=== PATIENT | male | born 1960 | race Hispanic/Latino ===

== ENCOUNTER 2019-06-08 18:53 | Emergency (ER) | payer OTHER ==
--- OUTSIDE RECORDS SUMMARY | 2019-06-08 18:56 | XMS REPORT ---
:1960 [facility] Address [address] [place] [address] [address] [place] [address] Care Team Providers Name Role Phone Unavailable Unavailable Unavailable Problems This patient has no known problems. Allergies, Adverse Reactions, Alerts This patient has no known allergies or adverse reactions. Medications This patient has no known medications.
[2019-06-08 20:27] LABS: Absolute Lymphocytes (CBC) 2.1 K/uL (0.7-4.9); Basophils % 0.5 % (0-1.3); Hematocrit 40.6 % (39.6-49.0); Lymphocytes % 23.2 % (15.3-44.8); MPV 8.4 fL (7.6-11.3); RBC Red Blood Cell Count 4.77 M/uL (4.33-5.43)
[2019-06-08 20:40] LABS: Potassium 4.4 mmol/L (3.5-5.1)
[2019-06-08] MEDS ORDERED: HYDROCODONE/APAP 10/325 TAB ONE (22:26)
--- NOTE | 2019-06-09 00:04 | ER ---
Nurse's Notes [facility] Name: Joel Santiago Age: 59 yrs Sex: Male : 1960 Arrival Date: 06/08/2019 Time: 18:54 Bed 23 Private MD: Diagnosis: Torticollis;Headache Presentation: 06/08 18:55 Presenting complaint: Patient states: i have this headache on the L side of my head hj today that goes to my neck area, denies; trauma to the area, denies dizziness, denies N/V: reports sinus infection;. Transition of care: patient was not received from another setting of care. Onset of symptoms was June 08, 2019. Risk Assessment: Do you want to hurt yourself or someone else? Patient reports no desire to harm self or others. Initial Sepsis Screen: Does the patient meet any 2 criteria? No. Patient's initial sepsis screen is negative. Does the patient have a suspected source of infection? No. Patient's initial sepsis screen is negative. Care prior to arrival: None. 18:55 Method Of Arrival: Ambulatory 18:55 Acuity: SERENE 3 hj Triage Assessment: 21:29 Headache History: The patient has had previous headaches and this one is more severe mg2 than previous episodes. General: Appears in no apparent distress. comfortable, Behavior is calm, cooperative. Pain: Pain began gradually, Also complains of no other associated symptoms. Pain: Complains of pain in left base of the skull and left occipital area and left temporal area and left frontal area. Historical: - Allergies: 18:57 No Known Allergies; hj - PMHx: 18:57 Hypertension; heart disease; cardiac stents; hj - PSHx: 18:57 cardiac stents; hj - Immunization history:: Flu vaccine status is unknown. - Family history:: not pertinent. - Social history:: Smoking status: unknown. - Ebola Screening: : No symptoms or risks identified at this time. - Hospitalizations: : No recent hospitalization is reported. Screenin:21 Abuse screen: Denies threats or abuse. Denies injuries from another. Nutritional mg2 screening: No deficits noted. Tuberculosis screening: No symptoms or risk factors identified. Fall Risk IV access (20 points). Assessment: 21:26 General: Appears in no apparent distress. comfortable, Behavior is calm, cooperative. mg2 Pain: Complains of pain in left base of the skull and left occipital area and left temporal area and left frontal area Pain does not radiate. Pain currently is 5 out of 10 on a pain scale. Quality of pain is described as aching. Neuro: Level of Consciousness is awake, alert, obeys commands, Oriented to person, place, time, situation. Neuro: Reports headache in left. Cardiovascular: Capillary refill < 3 seconds Patient's skin is warm and dry. Respiratory: Airway is patent Respiratory effort is even, unlabored, Respiratory pattern is regular, symmetrical. GI: No signs and/or symptoms were reported involving the gastrointestinal system. : No signs and/or symptoms were reported regarding the genitourinary system. EENT: No signs and/or symptoms were reported regarding the EENT system. Derm: Skin is intact, is healthy with good turgor, Skin is pink, warm \T\ dry. normal. Musculoskeletal: Circulation, motion, and sensation intact. Capillary refill < 3 seconds. Vital Signs: 18:58 BP 151 / 85; Pulse 72; Resp 18; Temp 98.2(O); Pulse Ox 99% on R/A; Weight 102.06 kg; hj Height 5 ft. 6 in. (167.64 cm); Pain 8/10; 21:22 BP 166 / 91; Pulse 71; Resp 18; Pulse Ox 100% on R/A; mg2 23:35 BP 150 / 86; Pulse 78; Resp 18; Pulse Ox 100% on R/A; mg2 18:58 Body Mass Index 36.32 (102.06 kg, 167.64 cm) Mel Coma Score: 23:59 Eye Response: spontaneous(4). Verbal Response: oriented(5). Motor Response: obeys rn commands(6). Total: 15. ED Course: 18:54 Patient arrived in ED. rg4 18:56 Triage completed. hj 18:57 Arm band placed on left wrist. hj 19:43 Aly Carolina MD is Attending Physician. rn 19:58 Radiology exam delayed due to lab results not completed at this time. (BUN/Creatinine). vm2 20:07 Hammad Phillips, RN is Primary Nurse. mg2 20:37 Radiology exam delayed due to lab results not completed at this time. (BUN/Creatinine). nj 21:21 No provider procedures requiring assistance completed. Inserted saline lock: 20 gauge mg2 in right antecubital area, using aseptic technique. Blood collected. 21:28 Patient has correct armband on for positive identification. Pulse ox on. NIBP on. Door mg2 closed. Warm blanket given. 21:36 CT completed. Patient tolerated procedure well. Patient moved back from CT. nj 21:47 CT Head Brain wo Cont In Process Unspecified. EDMS 21:47 CT Soft Tissue Neck W/contr In Process Unspecified. EDMS 06/09 00:31 IV discontinued, intact, bleeding controlled, No redness/swelling at site. Pressure mg2 dressing applied. Administered Medications: 06/08 22:24 Drug: [place] 10 mg-325 mg 1 tabs Route: PO; mg2 06/09 00:30 Follow up: Response: No adverse reaction; Marked relief of symptoms mg2 00:19 Drug: Decadron - Dexamethasone 10 mg Route: IVP; Site: right antecubital; mg2 00:30 Follow up: Response: No adverse reaction; Medication administered at discharge. mg2 00:19 Drug: Flexeril 10 mg Route: PO; mg2 00:30 Follow up: Response: No adverse reaction; Medication administered at discharge. mg2 Outcome: 00:00 Discharge ordered by . rn 00:31 Discharged to home ambulatory, with family. mg2 00:31 Condition: stable 00:31 Discharge instructions given to patient, family, Instructed on discharge instructions, follow up and referral plans. medication usage, Demonstrated understanding of instructions, follow-up care, medications, Prescriptions given X 2. 00:31 Patient left the ED. mg2 Signatures: Dispatcher [employer] EDKS Aly Carolina MD MD rn Joaquin, Henry, RN RN hj Garcia, Rubi rg4 Hawk Cobian Victoria 2 Hammad Phillips RN RN mg2 Corrections: (The following items were deleted from the chart) 06/08 18:56 18:55 Presenting complaint: Patient states: i have this headache on the L side of my hj head today, denies dizziness, denies N/V: reports sinus infection; hj 18:59 18:58 Pulse 72bpm; Resp 18bpm; Pulse Ox 99% RA; Temp 98.2F Oral; 102.06 kg; Height 5 hj ft. 6 in.; BMI: 36.3; Pain 8/10; hj
--- NOTE | 2019-06-09 00:05 | EDPHYS ---
Physician Documentation [facility] Name: Joel Santiago Age: 59 yrs Sex: Male : 1960 Arrival Date: 06/08/2019 Time: 18:54 Bed 23 Private MD: ED Physician Aly Carolina HPI: 06/08 20:26 This 59 yrs old Male presents to ER via Ambulatory with complaints of rn Headache, Neck Pain, <24hrs Old. 20:26 The patient complains of pain to the left frontal area, left temporal area, left rn occipital area and left base of the skull. The patient describes the headache as aching. Onset: The symptoms/episode began/occurred today. Associated signs and symptoms: Pertinent positives: sinus congestion, sinus tenderness, Pertinent negatives: fever, neck stiffness, rash. Severity of symptoms: At its worst the pain was mild, in the emergency department the pain is unchanged. The patient has not experienced similar symptoms in the past. The patient has not recently seen a physician. Reports left sided headache that shoots down left neck, hurts when moves head to left, no vision changes, no focal neuro complaints, no trauma, reports recent sinus problems with congestion and tenderness. NO chest pain/sob. . Historical: - Allergies: 18:57 No Known Allergies; hj - PMHx: 18:57 Hypertension; heart disease; cardiac stents; hj - PSHx: 18:57 cardiac stents; hj - Immunization history:: Flu vaccine status is unknown. - Family history:: not pertinent. - Social history:: Smoking status: unknown. - Ebola Screening: : No symptoms or risks identified at this time. - Hospitalizations: : No recent hospitalization is reported. ROS: 20:26 Constitutional: Negative for fever, chills, and weight loss, Eyes: Negative for injury, rn pain, redness, and discharge, Neck: Negative for injury Cardiovascular: Negative for chest pain, palpitations, and edema, Respiratory: Negative for shortness of breath, cough, wheezing, and pleuritic chest pain, Abdomen/GI: Negative for abdominal pain, nausea, vomiting, diarrhea, and constipation, MS/Extremity: Negative for injury and deformity, Skin: Negative for injury, rash, and discoloration, Neuro: Negative for weakness, numbness, tingling, and seizure. Exam: 20:26 Constitutional: This is a well developed, well nourished patient who is awake, alert, rn and in no acute distress. Head/Face: Normocephalic, atraumatic. Eyes: Pupils equal round and reactive to light, extra-ocular motions intact. Lids and lashes normal. Conjunctiva and sclera are non-icteric and not injected. Cornea within normal limits. Periorbital areas with no swelling, redness, or edema. ENT: Nares patent. No nasal discharge, no septal abnormalities noted. Oropharynx with no redness, swelling, or masses, exudates, or evidence of obstruction, uvula midline. Mucous membranes moist. Neck: Trachea midline, Supple, full range of motion without nuchal rigidity, or vertebral point tenderness. No Meningismus. + left anterior cervical and SCM LAD, no masses Cardiovascular: Regular rate and rhythm. No pulse deficits. Respiratory: Lungs have equal breath sounds bilaterally, clear to auscultation. No increased work of breathing, no retractions or nasal flaring. MS/ Extremity: Pulses equal, no cyanosis. Neurovascular intact. Full, normal range of motion. Equal circumference. Neuro: Awake and alert, GCS 15, oriented to person, place, time, and situation. Cranial nerves II-XII grossly intact. Motor strength 5/5 in all extremities. Sensory grossly intact. Cerebellar exam normal. Normal gait. Vital Signs: 18:58 BP 151 / 85; Pulse 72; Resp 18; Temp 98.2(O); Pulse Ox 99% on R/A; Weight 102.06 kg; Height 5 ft. 6 in. (167.64 cm); Pain 8/10; 21:22 BP 166 / 91; Pulse 71; Resp 18; Pulse Ox 100% on R/A; mg2 23:35 BP 150 / 86; Pulse 78; Resp 18; Pulse Ox 100% on R/A; mg2 18:58 Body Mass Index 36.32 (102.06 kg, 167.64 cm) [place] Coma Score: 23:59 Eye Response: spontaneous(4). Verbal Response: oriented(5). Motor Response: obeys rn commands(6). Total: 15. MDM: 19:43 Patient medically screened. rn 23:59 Differential diagnosis: tension headache, vasomotor headache, torticollis, rn lymphadenopathy. Data reviewed: vital signs, nurses notes, lab test result(s), radiologic studies, CT scan, and as a result, I will discharge patient. Counseling: I had a detailed discussion with the patient and/or guardian regarding: the historical points, exam findings, and any diagnostic results supporting the discharge/admit diagnosis, lab results, radiology results, the need for outpatient follow up, to return to the emergency department if symptoms worsen or persist or if there are any questions or concerns that arise at home. Special discussion: I discussed with the patient/guardian in detail that at this point there is no indication for admission to the hospital. It is understood, however, that if the symptoms persist or worsen the patient needs to return immediately for re-evaluation. ED course: No acute findings on ct neck and head, will dc home with steroids and muscle relaxers.. 06/08 19:50 Order name: CBC with Diff; Complete Time: 21:38 rn 06/08 19:50 Order name: Basic Metabolic Panel; Complete Time: 21:38 rn 06/08 19:50 Order name: [place] Screen Profile; Complete Time: 21:38 rn 06/08 19:50 Order name: Strep; Complete Time: 21:38 rn 06/08 19:50 Order name: CT Head Brain wo Cont rn 06/08 20:48 Order name: Throat Culture EDMS 06/08 19:50 Order name: IV Start; Complete Time: 20:26 rn 06/08 19:50 Order name: CT Soft Tissue Neck W/contr rn Administered Medications: 22:24 Drug: [place] 10 mg-325 mg 1 tabs Route: PO; mg2 06/09 00:30 Follow up: Response: No adverse reaction; Marked relief of symptoms mg2 00:19 Drug: Decadron - Dexamethasone 10 mg Route: IVP; Site: right antecubital; mg2 00:30 Follow up: Response: No adverse reaction; Medication administered at discharge. mg2 00:19 Drug: Flexeril 10 mg Route: PO; mg2 00:30 Follow up: Response: No adverse reaction; Medication administered at discharge. mg2 Disposition: 06/09/19 00:00 Discharged to Home. Impression: Torticollis, Headache. - Condition is Stable. - Discharge Instructions: General Headache Without Cause, Acute Torticollis, Adult. - Prescriptions for Cyclobenzaprine 10 mg Oral Tablet - take 1 tablet by ORAL route every 8 hours As needed; 20 tablet. Medrol (Carlos) 4 mg Oral Tablets, Dose Pack - take 1 tablet by ORAL route as directed - follow package instructions; 1 packet. - Medication Reconciliation Form, Thank You Letter, Antibiotic Education, Prescription Opioid Use form. - Follow up: Private Physician; When: As needed; Reason: Recheck today's complaints, Re-evaluation by your physician. - Problem is new. - Symptoms have improved. Signatures: Dispatcher [employer] EDMS Aly Carolina MD MD rn Joaquin, Henry, RN RN hj Gardose, Michele, RN RN mg2 Corrections: (The following items were deleted from the chart) 00:31 00:00 06/09/2019 00:00 Discharged to Home. Impression: Torticollis; Headache. Condition mg2 is Stable. Forms are Medication Reconciliation Form, Thank You Letter, Antibiotic Education, Prescription Opioid Use. Follow up: Private Physician; When: As needed; Reason: Recheck today's complaints, Re-evaluation by your physician. Problem is new. Symptoms have improved. rn
[2019-06-09] MEDS ORDERED: CYCLOBENZAPRINE 10 MG TAB ONE (00:18)
[2019-06-09] MEDS ORDERED: dexAMETHasone 10 MG/ML VIAL ONE (00:18)
--- NOTE | 2019-06-09 11:14 | RAD REPORT ---
EXAM DESCRIPTION: CT - Soft Tissue Neck W/Contr - 06/09/2019 1:57 am CLINICAL HISTORY: Left neck pain/swelling COMPARISON: None. TECHNIQUE: CT NECK WITH IV CONTRAST on 06/08/2019 7:50 PM CDT This exam was performed according to our departmental dose-optimization program, which includes autom ated exposure control, adjustment of the mA and/or kV according to patient size and/or use of iterati ve reconstruction technique. FINDINGS: The visualized portions of the brain and orbits are normal. The oral cavity, oropharynx and nasopharynx are normal. The parapharyngeal fat planes are preserved . The hypopharynx is unremarkable. The parotid and submandibular glands are grossly within normal limits. No intrinsic mass lesions are seen. . The paranasal sinuses and mastoid air cells are clear. No definite pathologically enlarged lymph nodes are identified. The thyroid gland is normal in size and configuration. The thoracic inlet is normal. The superior mediastinum and lung apices are normal. No acute osseous abnormalities are identified. IMPRESSION: Unremarkable study. Electronically signed by: Neymar Ascencio MD 06/08/2019 10:16 PM CDT Due to temporary technical issues with the PACS/Fluency reporting system, reports are being signed by the in house radiologist as a courtesy to ensure prompt reporting. The interpreting radiologist is f ully responsible for the content of the report.
--- NOTE | 2019-06-09 11:16 | RAD REPORT ---
EXAM DESCRIPTION: CT - Head Brain Wo Cont - 06/09/2019 1:56 am CLINICAL HISTORY: HEADACHE COMPARISON: None. TECHNIQUE: CT HEAD WITHOUT IV CONTRAST on 06/08/2019 7:50 PM CDT This exam was performed according to our departmental dose-optimization program, which includes autom ated exposure control, adjustment of the mA and/or kV according to patient size and/or use of iterati ve reconstruction technique. FINDINGS: There is no acute hemorrhage, mass effect or midline shift. Mayers-white differentiation is preserved. There is no hydrocephalus. There is no significant volume loss for age. There are mild pat corrina hypodensities within the periventricular and subcortical white matter, consistent with microangio pathic ischemic changes. The calvarium is intact. Orbits and globes are unremarkable. The paranasal sinuses are clear. Mastoid air cells are clear. IMPRESSION: No acute intracranial findings. Electronically signed by: Neymar Ascencio MD 06/08/2019 10:09 PM CDT Due to temporary technical issues with the PACS/Fluency reporting system, reports are being signed by the in house radiologist as a courtesy to ensure prompt reporting. The interpreting radiologist is f ully responsible for the content of the report.
== END 2019-06-09 00:31 | disposition home or self-care (01) ==
LOC: ER 18:53
DX: M43.6 Torticollis (principal); R51 Headache; I10 Essential (primary) hypertension
CPT/HCPCS: 87070; 85025; 80048; 36415; 86308; 87081; 70450; 70491; 96374; 99284; Q9967; J1100

== ENCOUNTER 2019-07-15 06:05 | Day surgery (SDC) | payer OTHER ==
--- OUTSIDE RECORDS SUMMARY | 2019-07-15 06:08 | XMS REPORT ---
:1960 [facility] Address [address] [place] [address] [address]. [address] [place] [address] Care Team Providers Name Role Phone Unavailable Unavailable Unavailable Problems This patient has no known problems. Allergies, Adverse Reactions, Alerts This patient has no known allergies or adverse reactions. Medications This patient has no known medications.
--- OUTSIDE RECORDS SUMMARY | 2019-07-15 06:08 | XMS REPORT | Continuity of Care Document ---
:1960 Author Organization [facility] Address [address] [place] [address] Phone Unavailable Care Team Providers Name Role Phone OTHER, ENTER NAME IN NOTES Primary Care Physician Unavailable Insurance Providers Guarantor Joel Santiago Address [address] [place] [phone] Email NONE Payer [facility] Policy Number [id number] Subscriber's Name Joel Santiago Relationship Self / Same As Patient Group Number [id number] Group Name NA Advance Directives Directive Response Recorded Date/Time Advance Directives No 03/19/16 11:40am Directive to Physicians/Living Will No 03/19/16 11:40am Health Care Proxy No 03/19/16 11:40am Organ Donor No 03/19/16 11:40am Medical Power of Computer Repair Engineer No 03/19/16 11:40am Chief Complaint and Reason for Visit Chief Complaint General Complaint Reason for Visit Hematuria Enlarged prostate Nausea Problems Medical Problem Onset Date Status [id number] Unknown Acute Nausea & vomiting Unknown Acute Urethritis Unknown Acute Past Problems Medical Problem Onset Date Status Costochondritis Unknown Acute Enlarged prostate Unknown Acute Hamstring strain Unknown Acute Hematuria Unknown Acute Muscle strain Unknown Acute Nausea Unknown Acute Pharyngitis Unknown Acute Upper respiratory infection Unknown Acute Medications Current Home Medications Medication Dose Units Route Directions Days Qty Instructions Start Date Amlodipine 2.5 Mg ORAL Once Daily Besylate (Bulk) (Amlodipine Besylate) Besylate Pow Atorvastatin * 40 Mg ORAL Daily (Lipitor *) 40 Mg Tab Cephalexin * 1 Cap ORAL Four Times 7 Days 28 Cap 06/19/19 (Keflex *) 500 Daily for Mg Cap Infection Clopidogrel 75 Mg ORAL Daily Bisulfate (Plavix 75 Mg *) 75 Mg Tab Enalapril 5 Mg ORAL Twice A Day Maleate (Vasotec 5 Mg*) 5 Mg Tab Isosorbide 60 Mg ORAL Once Daily Mononitrate (Imdur *) 120 Mg Tab Metoprolol 100 Mg ORAL Daily Succinate (Toprol Xl *) 100 Mg Tabcr Ondansetron Hcl 1 Tab ORAL Every 6 Hours 5 Days 20 Tablet 06/19/19 (Zofran *) 4 Mg (4-10-16-22) Tab for Nausea Prednisone Pow 50 Mg ORAL Twice A Day Tizanidine Hcl 4 Mg ORAL Three Times A (Zanaflex 4 Mg) Day 4 Mg Cap Tramadol Hcl 50 Mg ORAL Three Times A (Ultram *) 50 Mg Day Tab Social History Social History Problem Response Recorded Date/Time Onset Date Status Hx Physical Abuse No 06/19/2019 2:56pm Not Applicable Not Applicable Smoking Status Start Date Stop Date Former smoker Hospital Discharge Instructions No hospital discharge instruction information available. Plan of Care Discharge Date 06/19/19 7:22pm Instructions/Education Provided Benign Prostatic Hyperplasia Nausea, Adult, [id number] Hematuria, Adult Forms Provided Prescription Opioid Use Portal Welcome Letter Prescriptions See Medication Section Referrals OTHER,ENTER NAME IN NOTES Additional Instructions/Education STOP BACTRIM START KEFLEX 500MG CAP 1 BY MOUTH EVERY 6 HOURS X 7 DAYS. ZOFRAN 4MG TAB 1 BY MOUTH EVERY 6 HOURS NEEDED FOR NAUSEA #20. DRINK PLENTY OF FLUIDS.FOLLOW UP WITH UROLOGY IN 2-3 DAYS RETURN TO THE ER IF YOUR SYMPTOMS WORSEN Functional Status No functional status information available. Allergies, Adverse Reactions, Alerts Allergen Type Severity Reaction Status Last Updated No Known Allergies Allergy Severe Active 05/10/09 Immunizations No immunization information available. Vital Signs Acute Vital Signs Vital Response Date/Time Blood Pressure 149/89 mm Hg 06/19/2019 7:20pm Pulse Pulse Rate (adult) 72 beats per minute (60 - 100) 06/19/2019 7:20pm Respiratory Rate 18 breaths per minute (10 - 24) 06/19/2019 7:20pm Temperature Source Oral 06/19/2019 7:20pm Height 5 ft 8 in 06/19/2019 2:56pm Weight 225 lb 06/19/2019 2:56pm Body Mass Index 34.2 kg/m^2 06/19/2019 2:56pm Results Laboratory Results Test Name Result Units Flags Reference Collection Result Comments Date/Time Date/Time White Blood Count 7.5 K/ul 4.0-12.3 06/19/2019 06/19/2019 3:29pm 3:52pm Red Blood Count 4.59 M/ul 3.80-5.80 06/19/2019 06/19/2019 3:29pm 3:52pm Hemoglobin 12.7 g/dL 11.7-17.2 06/19/2019 06/19/2019 3:29pm 3:52pm Hematocrit 38.8 % 35.0-51.0 06/19/2019 06/19/2019 3:29pm 3:52pm Mean Corpuscular 84.5 fl 83-100 06/19/2019 06/19/2019 Volume 3:29pm 3:52pm Mean Corpuscular 27.7 pg 26.8-33.4 06/19/2019 06/19/2019 Hemoglobin 3:29pm 3:52pm Mean Corpuscular 32.7 g/dL 30-35 06/19/2019 06/19/2019 Hemoglobin Concent 3:29pm 3:52pm Red Cell 13.6 % 12.0-14.0 06/19/2019 06/19/2019 Distribution Width 3:29pm 3:52pm Platelet Count 150 K/uL L 175-450 06/19/2019 06/19/2019 3:29pm 3:52pm Mean Platelet 10.7 fL 9.4-12.6 06/19/2019 06/19/2019 Volume 3:29pm 3:52pm Neutrophils (%) 64.2 % 44.7-82.4 06/19/2019 06/19/2019 (Auto) 3:29pm 3:52pm Immature 0.4 % 0.0-0.4 06/19/2019 06/19/2019 Granulocyte % 3:29pm 3:52pm (Auto) Lymphocytes (%) 19.5 % 10.0-50.0 06/19/2019 06/19/2019 (Auto) 3:29pm 3:52pm Monocytes (%) 15.4 % H 3.9-13.4 06/19/2019 06/19/2019 (Auto) 3:29pm 3:52pm Eosinophils (%) 0.4 % 0.0-6.4 06/19/2019 06/19/2019 (Auto) 3:29pm 3:52pm Basophils (%) 0.1 % L 0.2-1.2 06/19/2019 06/19/2019 (Auto) 3:29pm 3:52pm Neutrophils # 4.81 K/uL 1.78-5.38 06/19/2019 06/19/2019 (Auto) 3:29pm 3:52pm Absolute Immature 0.0 K/uL 0.0-0.03 06/19/2019 06/19/2019 Granulocyte (auto 3:29pm 3:52pm Lymphocytes # 1.5 K/uL 1.32-3.57 06/19/2019 06/19/2019 (Auto) 3:29pm 3:52pm Monocytes # (Auto) 1.15 K/uL H 0.30-0.82 06/19/2019 06/19/2019 3:29pm 3:52pm Eosinophils # 0.03 K/uL L 0.04-0.54 06/19/2019 06/19/2019 (Auto) 3:29pm 3:52pm Basophils # (Auto) 0.01 K/uL 0.01-0.08 06/19/2019 06/19/2019 3:29pm 3:52pm Nucleated Red 0 /100 WBC 0-0.2 06/19/2019 06/19/2019 Blood Cells % 3:29pm 3:52pm Nucleated Red 0 K/uL 0 06/19/2019 06/19/2019 Blood Cells # 3:29pm 3:52pm Prothrombin Time 10.8 SECONDS 10.3-12.3 06/19/2019 06/19/2019 3:29pm 3:55pm THERAPEUTIC LEVEL: 1.5 to 1.9 times normal range of PT Prothromb Time 0.98 06/19/2019 06/19/2019 International 3:29pm 3:55pm Recommended therapeutic range for patients receiving Ratio warfarin (coumadin) therapy: INR is 2.0 to 3.0 Recommended range for patients with mechanical prosthetic heart valves: INR is 2.5 to 3.5 Activated Partial 31.6 SECONDS 22.5-37.0 06/19/2019 06/19/2019 Thromboplast Time 3:29pm 3:55pm Urine Color ORANGE A 06/19/2019 06/19/2019 3:44pm 4:16pm Urine Appearance CLOUDY A CLEAR 06/19/2019 06/19/2019 3:44pm 4:16pm Urine Glucose (UA) NEGATIVE NEGATIVE 06/19/2019 06/19/2019 3:44pm 4:16pm Urine Bilirubin NEGATIVE NEGATIVE 06/19/2019 06/19/2019 3:44pm 4:16pm Urine Ketones NEGATIVE NEGATIVE 06/19/2019 06/19/2019 3:44pm 4:16pm Urine Specific 1.025 1.003-1.03 06/19/2019 06/19/2019 [place] 0 3:44pm 4:16pm Urine Blood 3+ (LARGE) H NEGATIVE 06/19/2019 06/19/2019 3:44pm 4:16pm Urine pH 6.500 5-9 06/19/2019 06/19/2019 3:44pm 4:16pm Urine Protein 3+ (300 H NEGATIVE 06/19/2019 06/19/2019 mg/dL) 3:44pm 4:16pm Urine Urobilinogen 2.0-3.0 mg/dL H 0.2-1.0 06/19/2019 06/19/2019 3:44pm 4:16pm Urine Nitrate NEGATIVE NEGATIVE 06/19/2019 06/19/2019 3:44pm 4:16pm Urine Leukocyte 2+ H NEGATIVE 06/19/2019 06/19/2019 Esterase 3:44pm 4:16pm Urine RBC >50 /hpf H 0-5 06/19/2019 06/19/2019 3:44pm 4:24pm Urine WBC >50 /hpf H 0-5 06/19/2019 06/19/2019 3:44pm 4:24pm Urine Epithelial 6-10 /hpf 0-5 06/19/2019 06/19/2019 Cells 3:44pm 4:24pm Urine Bacteria None /hpf None 06/19/2019 06/19/2019 Detected Detect 3:44pm 4:24pm Urine Casts 20-29 /lpf H None 06/19/2019 06/19/2019 Detect 3:44pm 4:24pm Urine Culture YES 06/19/2019 06/19/2019 Reflexed 3:44pm 4:16pm Urine Pathogenic Cellular /hpf A None 06/19/2019 06/19/2019 Casts casts Detect 3:44pm 4:24pm (1-5) Random Glucose 117 mg/dL H 82-115 06/19/2019 06/19/2019 3:29pm 3:59pm Blood Urea 26 mg/dL H 8-06/19/2019 06/19/2019 Nitrogen 3:29pm 3:59pm Serum Osmolality 278 L 280-300 06/19/2019 06/19/2019 3:29pm 3:59pm Creatinine 2.3 mg/dL H 0.70-1.20 06/19/2019 06/19/2019 3:29pm 3:59pm Glomerular 29.05 L 06/19/2019 06/19/2019 GFR RESULTS ARE REPORTED IN mL/min/1.73m2. Filtration Rate 3:29pm 3:59pm Calc Normal GFR: >60mL/min Moderately decreased GFR: 30-59 mL/min Severely decreased GFR: 15-29 mL/min Kidney Failure (or Dialysis): <15 mL/min The calculated eGFR is not valid for patients younger than 18 years or older than 75 years. BUN/Creatinine 11.3 L 10-2206/19/2019 06/19/2019 Ratio 3:29pm 3:59pm Sodium Level 136 mmol/L 135-145 06/19/2019 06/19/2019 3:29pm 3:59pm Potassium Level 3.9 mmol/L 3.5-5.2 06/19/2019 06/19/2019 3:29pm 3:59pm Chloride Level 97 mmol/L L 98-108 06/19/2019 06/19/2019 3:29pm 3:59pm Carbon Dioxide 26 mmol/L 21-32 06/19/2019 06/19/2019 Level 3:29pm 3:59pm Anion Gap 16.9 mEq/L 10-2206/19/2019 06/19/2019 3:29pm 3:59pm Calcium Level 9.5 mg/dL 8.8-10.2 06/19/2019 06/19/2019 3:29pm 3:59pm Total Protein 7.8 g/dL 6.6-8.7 06/19/2019 06/19/2019 3:29pm 3:59pm Albumin 3.9 g/dL 3.5-5.2 06/19/2019 06/19/2019 3:29pm 3:59pm Globulin 3.9 gm/dL 06/19/2019 06/19/2019 3:29pm 3:59pm Albumin/Globulin 1.0 >1.0 06/19/2019 06/19/2019 Ratio 3:29pm 3:59pm Total Bilirubin 0.7 mg/dL 0.0-1.2 06/19/2019 06/19/2019 3:29pm 3:59pm Aspartate Amino 55 U/L H 15-40 06/19/2019 06/19/2019 Transf (AST/SGOT) 3:29pm 3:59pm Alanine 73 U/L H 0-41 06/19/2019 06/19/2019 Aminotransferase 3:29pm 3:59pm (ALT/SGPT) Total Alkaline 131 U/L H 40-130 06/19/2019 06/19/2019 Phosphatase 3:29pm 3:59pm Microbiology Results Procedure Source Organism/Result Collection Result Result Status Date/Time Date/Time Blood Culture Blood SPECIMEN HAS BEEN 06/19/2019 06/19/2019 Preliminary RECEIVED IN LAB AND 3:29pm 3:39pm IS IN PROGRESS. Procedures Procedure Status Date Provider(s) Computed tomography of abdomen and pelvis without Completed 06/19/19 DIONICIO HAZEL TUTORING ASSISTANT contrast Encounters Encounter Location Arrival/Admit Date Discharge/Depart Date Attending Provider Departed [place] 06/19/19 2:48pm 06/19/19 7:22pm SIDDHARTHA FAITH Emergency [facility] Recent Diagnosis
[2019-07-15] MEDS ORDERED: Ringers Lactate 1,000 ML IV ONE (06:44)
[2019-07-15] MEDS ORDERED: LIDOCAINE 1% MPF 30 ML VIAL ONE (07:21)
[2019-07-15] MEDS ORDERED: LIDOCAINE 1% W/EPI 1:100,000 MDV 20 ML VIAL ONE (07:21)
[2019-07-15] MEDS ORDERED: MIDAZOLAM HCL 2 MG/2 ML INJ ONE (07:24)
[2019-07-15] MEDS ORDERED: FENTANYL CITR 100 MCG/2 ML ONE (07:25)
[2019-07-15] MEDS ORDERED: PROPOFOL 200 MG/20 ML VIAL IV ONE (07:31)
[2019-07-15] MEDS ORDERED: LIDOCAINE 2% MPF 5 ML VIAL ONE (07:31)
--- NOTE | 2019-07-15 08:16 | P.BOP ---
Preoperative diagnosis: severe MEDINA, elevated sed rate Postoperative diagnosis: same Primary procedure: left temporal artery biopsy Oil Prospecting Observer: NONE,NONE Estimated blood loss: <10ml Specimen: L temporal artery segment Anesthesia: General Complications: None Implants: none Fluids & blood products: crystalloid 1L Transferred to: Recovery Room Condition: Good
[2019-07-15] MEDS: HYDROMORPHONE HCL 1 MG/ML INJ ONE ×4 (08:33→08:52)
[2019-07-15 09:05] VITALS: O2SAT 97
[2019-07-15] MEDS ORDERED: ACETAMINOPHEN 500 MG TAB ONE (09:28)
[2019-07-15] MEDS ORDERED: ACETAMINOPHEN 500 MG TAB PO ONE (09:30)
[2019-07-15 10:22] VITALS: BP 137/78; TEMP 97.2
--- NOTE | 2019-07-15 11:07 | EKG ---
Test Date: 2019-07-15 Test Time: 07:23:49 Cattle Brander: JANE MEASUREMENT RESULTS: Intervals: Rate: 71 SD: 156 QRSD: 94 QT: 394 QTc: 428 [place]: P: 54 SD: 156 QRS: 2 T: 50 INTERPRETIVE STATEMENTS: Normal sinus rhythm Minimal voltage criteria for LVH, may be normal variant Borderline ECG No previous ECG available for comparison Electronically Signed On 07-15-19 11:05:59 CDT by Gray Alicea
--- NOTE | 2019-07-15 20:00 | OP ---
Date of Procedure: 07/15/2019 Surgeon: Aspen Nguyen MD Preoperative Diagnosis: Severe headache, elevated sedimentation rate, concern for temporal arteritis. Postoperative Diagnosis: Severe headache, elevated sedimentation rate, concern for temporal arteritis. Procedure: Left temporal artery biopsy. Indication For Procedure: Joel Santiago is a 59-year-old male, who presented to the ENT Clinic, referred for sinus evaluation. He complained of 9/ 10 severity left-sided headache since for 4 months, centered over the left jaw, radiating to the back of the head and the left eye. After evaluation including urgent sedimentation rate of 100, recommendation was made for temporal artery biopsy. Description Of Procedure: The patient was brought to the operating room. He was placed under general anesthesia via LMA. The path of the left temporal artery was identified by Doppler signal and marked externally to the skin. The skin was prepped and draped in the standard fashion and an incision was made through the skin and subcutaneous tissue and bleeding from the skin edges was controlled with Bovie electrocautery. The superficial temporal fascia was identified and was carefully divided. This revealed the temporal artery and the course of the temporal artery was dissected. A silk tie was placed superiorly and inferiorly along the exposed segment. The superior aspect was cut and the artery was dissected from the surrounding soft tissues. The inferior end was cut and the specimen was sent to pathology for permanent analysis. The surgical bed appeared hemostatic and the wound was closed in a layered fashion using Vicryl buried sutures and a running fast-absorbing gut. The skin was cleaned and dried. Triple antibiotic and gauze dressing were applied to the site and the patient was returned to care of anesthesia for awakening and extubation in the operating room, which proceeded without difficulty. Complications: None. Disposition: The patient will be discharged home later today in the care of his and start 50 mg prednisone p.o. daily until the biopsy results are available. AMY/BENIGNO Voice ID: [id number] Report ID: [id number]
== END 2019-07-15 10:30 | disposition home or self-care (01) ==
LOC: OR 06:05
PROVIDERS: ATTEND Otolaryngology
PROC: 03BT0ZX Excision of Left Temporal Artery, Open Approach, Diagnostic (ICD-10-PCS; principal; 2019-07-15 07:30)
DX: R51 Headache (principal); M26.622 Arthralgia of left temporomandibular joint; I70.8 Atherosclerosis of other arteries; R70.0 Elevated erythrocyte sedimentation rate; I10 Essential (primary) hypertension; I25.10 Atherosclerotic heart disease of native coronary artery without angina pectoris; Z80.9 Family history of malignant neoplasm, unspecified
CPT/HCPCS: 93005; 88305; 37609; J2704; J2250; J3010; J1170 ×2